=== PATIENT | female | born 1995 | race Caucasian/White ===

== ENCOUNTER 2020-10-24 00:24 | Emergency (ER) | payer OTHER ==
[~2020-10-24] VITALS: Ht 157.5 cm; Wt 44.5 kg
[2020-10-24 01:14] VITALS: BP 120/78
== END 2020-10-24 01:10 | disposition home or self-care (01) ==
LOC: ER 00:24
DX: F41.0 Panic disorder [episodic paroxysmal anxiety] (principal); F43.0 Acute stress reaction; R25.3 Fasciculation; R25.1 Tremor, unspecified; F17.210 Nicotine dependence, cigarettes, uncomplicated